=== PATIENT | female | born 1960 | race African-American/Black ===

== ENCOUNTER 2018-07-01 11:00 | Emergency (ER) | payer BC, SELFPAY ==
[2018-07-01 11:31] VITALS: BP 141/79; PULSE 76; RESP 18; TEMP 37; O2SAT 98; BMI 38.0
--- NOTE | 2018-07-01 11:40 | DI.RAD.S_ITS ---
PROCEDURE: XR CHEST 2V INDICATIONS: cough, body aches, chills TECHNIQUE: 2 views of the chest were acquired. COMPARISON: None. FINDINGS: Surgical changes and devices: None. Lungs and pleura: No pleural effusions or pneumothorax. Lungs are clear. Mediastinum: Mediastinal contours are normal. Heart size is normal. Bones and chest wall: No suspicious bony abnormalities. Soft tissues appear unremarkable. IMPRESSION: No acute cardiopulmonary findings. Dictated by: Nancy Calderon M.D. on 07/01/2018 at 12:04 Approved by: Nancy Calderon M.D. on 07/01/2018 at 12:04
[2018-07-01] MEDS: ACETAMINOPHEN 325 MG TABLET 975 MG PO (11:43)
[2018-07-01 12:06] LABS: Influenza A and B by PCR Rapid Negative (Negative)
[2018-07-01] MEDS: ALBUTEROL 2.5 MG/3 ML NEB (ADULT) INH (12:58)
--- NOTE | 2018-07-01 12:58 | ED_ITS ---
HPI - URI/Sore Throat <SHORTY Hernandez - Last Filed: 07/01/18 22:23> General Chief Complaint: Upper Respiratory Symptoms Stated Complaint: congestion,cough Time Seen by Provider: 07/01/18 12:58 Source: patient Mode of arrival: ambulatory Limitations: no limitations History of Present Illness HPI Narrative: 58-year-old female with history of hypertension and hypothyroidism that is a nonsmoker here for complaint of having sore throat and cough over the past couple of days. She denies having any fevers or chills. She denies having any nasal congestion. She denies having any contacts that have her similar symptoms. She is tolerating p.o. intake well. She denies any other concerns or complaints at this time. No acute distress. MD Complaint: cough and sore throat Related Data Allergies Allergy/AdvReac Type Severity Reaction Status Date / Time Iodinated Contrast- Oral and Allergy Severe Swelling Verified 07/01/18 11:36 IV Dye of Lip/Tongue/Throat Penicillins Allergy Severe Anaphylaxis Verified 07/01/18 11:36 prochlorperazine Allergy Intermediate Swelling Verified 07/01/18 11:36 [From Compazine] of the Eye Review of Systems <SHORTY Hernandez - Last Filed: 07/01/18 22:23> Constitutional Denies chills, Denies fever(s), Denies lethargy and Denies weakness Eyes Denies change in vision, Denies eye discharge, Denies irritation and Denies loss of vision ENT Ears, Nose, Mouth, and Throat: Reports sore throat and Denies throat swelling Cardiovascular Denies chest pain, Denies irregular heart rhythm, Denies lightheadedness, Denies palpitations and Denies orthopnea Respiratory Reports cough and Denies wheezing Gastrointestinal Gastrointestinal: Denies abdominal pain, Denies change in bowel habits, Denies diarrhea, Denies nausea and Denies vomiting Genitourinary Denies hematuria, Denies flank pain, Denies urinary incontinence and Denies urinary urgency Musculoskeletal Denies back pain, Denies muscle weakness, Denies numbness and Denies tingling Integumentary/Breasts Denies pruritus, Denies erythema, Denies rash and Denies wounds Neurologic Denies confusion, Denies loss of vision, Denies numbness, Denies tingling and Denies weakness Psychiatric Denies anxiety, Denies confusion, Denies depression, Denies homicidal ideation and Denies suicidal ideation Endocrine Denies palpitations Hematologic/Lymphatic Denies easy bruising Allergic/Immunologic Denies urticaria, Denies throat swelling and Denies wheezing Exam <SHORTY Hernandez - Last Filed: 07/01/18 22:23> Initial Vital Signs Initial Vital Signs: Vital Signs Temperature 98.6 F 07/01/18 11:31 Pulse Rate 76 07/01/18 11:31 Respiratory Rate 18 07/01/18 11:31 Blood Pressure 141/79 H 07/01/18 11:31 Pulse Oximetry 98 07/01/18 11:31 Const General: cooperative and well developed Nutritional Appearance: well nourished Orientation: alert, awake, oriented x3 and not confused HENMT Mouth: oral mucosae normal and mucous membranes abnormal Throat: posterior oropharynx abnormal erythema Eyes Conjunctivae: conjunctivae normal Sclera: sclerae normal Pupils: PERRL EOM: EOM intact bilaterally Resp Effort & Inspection: normal respiratory effort, able to speak in complete sentences, no respiratory distress and no use of accessory muscles Auscultation: clear to auscultation bilaterally, no rales, no rhonchi and no wheezes Cardio Rate: regular rate Rhythm: regular rhythm Heart Sounds: no click, no gallops, no murmurs and no rubs Skin General: no rashes or lesions noted, No jaundice and No petechiae Neuro General: alert, oriented x3, gait normal and no focal motor deficits Speech: speech normal <Luis Antonio Raymundo DO - Last Filed: 07/02/18 07:04> Initial Vital Signs Initial Vital Signs: Vital Signs Temperature 98.6 F 07/01/18 11:31 Pulse Rate 76 07/01/18 11:31 Respiratory Rate 18 07/01/18 11:31 Blood Pressure 141/79 H 07/01/18 11:31 Pulse Oximetry 98 07/01/18 11:31 Course <SHORTY Hernandez - Last Filed: 07/01/18 22:23> Orders Ordered: Discontinued Medications Acetaminophen (Tylenol) 975 mg PO NOW ONE Stop: 07/01/18 11:38 Last Admin: 07/01/18 11:43 Dose: 975 mg Albuterol (Ventolin) 2.5 mg INH NOW ONE Stop: 07/01/18 12:53 Last Admin: 07/01/18 12:58 Dose: 2.5 mg Vital Signs - 8 hr 07/01/18 11:31 07/01/18 13:00 Temperature 98.6 F Pulse Rate 76 68 Respiratory Rate 18 14 Blood Pressure 141/79 H Pulse Oximetry 98 98 <Luis Antonio Raymundo DO - Last Filed: 07/02/18 07:04> Orders Ordered: Discontinued Medications Acetaminophen (Tylenol) 975 mg PO NOW ONE Stop: 07/01/18 11:38 Last Admin: 07/01/18 11:43 Dose: 975 mg Albuterol (Ventolin) 2.5 mg INH NOW ONE Stop: 07/01/18 12:53 Last Admin: 07/01/18 12:58 Dose: 2.5 mg Vital Signs - 8 hr 07/01/18 11:31 07/01/18 13:00 Temperature 98.6 F Pulse Rate 76 68 Respiratory Rate 18 14 Blood Pressure 141/79 H Pulse Oximetry 98 98 MDM - URI/Sore Throat <SHORTY Hernandez - Last Filed: 07/01/18 22:23> Lab Data Lab Results 07/01/18 Range/Units 11:39 Influenza A & B (PCR) Negative (Negative) Point of Care Testing Rapid Strep A Negative Imaging Data Chest x-ray: Radiologist's impression: [place] [address] XRay Report Signed Patient: Little Burk#: [id number] : 9Acct:[id number] Age/Sex: 58 / FDate of Service: 07/01/18 Loc: ED Accession Number: [id number] Procedure: XR chest 2V Ordering Provider: Luis Antonio Raymundo D.O. PROCEDURE: XR CHEST 2V INDICATIONS: cough, body aches, chills TECHNIQUE: 2 views of the chest were acquired. COMPARISON: None. FINDINGS: Surgical changes and devices: None. Lungs and pleura: No pleural effusions or pneumothorax. Lungs are clear. Mediastinum: Mediastinal contours are normal. Heart size is normal. Bones and chest wall: No suspicious bony abnormalities. Soft tissues appear unremarkable. IMPRESSION: No acute cardiopulmonary findings. Dictated by: Nacny Calderon M.D. on 07/01/2018 at 12:04 Approved by: Nancy Calderon M.D. on 07/01/2018 at 12:04 [facility] Narrative Medical decision making narrative: Chest x-ray was obtained was negative for any acute findings. Influenza swab was obtained was negative. Rapid strep test was obtained and was also negative. Signs and symptoms presents as a viral illness. Plenty of fluids and rest. [id number] Tylenol or Motrin as needed for any discomfort. Salt water gargles a few times a day over the next couple of days to help with inflammation to the throat area. Follow up with primary care provider next week. For any worsening symptoms return to the emergency room. <Luis Antonio Raymundo DO - Last Filed: 07/02/18 07:04> Lab Data Lab Results 07/01/18 Range/Units 11:39 Influenza A & B (PCR) Negative (Negative) Point of Care Testing Rapid Strep A Negative Discharge Plan Departure Patient Disposition: Home Clinical Impression: Upper respiratory infection Discharge Date/Time: 07/01/18 13:55 Interventions: ED Discharge Assessment Last Done: 07/01/18 13:55 Instructions: DI for Viral Upper Respiratory Infection -- Adult Activity Restrictions/Additional Instructions: Chest x-ray was obtained was negative for any acute findings. Influenza swab was obtained was negative. Rapid strep test was obtained and was also negative. Signs and symptoms presents as a viral illness. Plenty of fluids and rest. [id number] Tylenol or Motrin as needed for any discomfort. Salt water gargles a few times a day over the next couple of days to help with inflammation to the throat area. Follow up with primary care provider next week. For any worsening symptoms return to the emergency room. Referrals: [facility] [Provider Group] <Luis Antonio Raymundo DO - Last Filed: 07/02/18 07:04> [facility] Attestation: I was available for consultation during this patient's emergency department encounter
[2018-07-01 13:00] VITALS: PULSE 68; RESP 14; O2SAT 98
[2018-07-01 13:54] VITALS: BP 138/72; PULSE 78; RESP 18; TEMP 36.9; O2SAT 98
== END 2018-07-01 13:55 | disposition home or self-care (01) ==
PROVIDERS: Emergency Medicine; Emergency Provider Nurse Practitioner Family
DX: J06.9 Acute upper respiratory infection, unspecified (principal)
CPT/HCPCS: 71046; 87400; 87880; 94640; 99282; 99284; J7613